=== PATIENT | female | born 1955 | race Two or more races ===

== ENCOUNTER 2021-07-31 09:30 | Outpatient (CLI) | payer MEDICARE, OTHER | END 2021-07-31 23:59 | disposition home or self-care (01) | LOC: LAB 09:30 | PROVIDERS: ATTEND Specialist | DX: Z01.812 Encounter for preprocedural laboratory examination (principal); Z20.822 Contact with and (suspected) exposure to COVID-19 | CPT/HCPCS: C9803; U0003 ==

== ENCOUNTER 2021-08-06 04:57 | Inpatient (IN) | payer MEDICARE, BC ==
[~2021-08-06] VITALS: Ht 165.1 cm; Wt 81.8 kg
--- NOTE | 2021-08-06 05:15 | NUR ---
PATIENT ARRIVED ON THE FLOOR FOR SURGERY TODAY. A/O X4. AMBULATORY. NO S/S OF DISTRESS NOTED. NO COMPLAIN OF PAIN. CALL LIGHT INSTRUCTED. URINE SAMPLE FOR UA COLLECTED AND SENT TO LAB. MRSA NASAL SWAB DONE BY KENNETH DIAZ AND SENT TO LAB. V/S TAKEN AND RECORDED, AFEBRILE. CONSENTS FOR RIGHT TOTAL ARTHROPLASTY, ANESTHESIA AND BLOOD TRANSFUSION SIGNED BY THE PATIENT AND ATTACHED TO THE CHART. PREOP CHECKLIST DONE AND ATTACHED TO THE CHART.
[2021-08-06 05:20] VITALS: BP 134/70
[2021-08-06] MEDS ORDERED: BUPIVACAINE 0.5 % PF 150 MG/30 ML VIAL ONE (06:34)
[2021-08-06] MEDS ORDERED: POLYMYXIN B SULFATE 500,000 UNITS ONE (06:34)
[2021-08-06] MEDS ORDERED: FENTANYL PF 250MCG/5ML AMPUL ONE (07:01)
[2021-08-06] MEDS ORDERED: HYDROMORPHONE INJ 2 MG/ML DISP.SYRIN ONE (07:02)
[2021-08-06] MEDS ORDERED: MIDAZOLAM HCL 2 MG/2ML VIAL ONE (07:02)
[2021-08-06] MEDS ORDERED: FAMOTIDINE/PF INJ 20 MG/2 ML VIAL IV ONE (07:02)
[2021-08-06] MEDS ORDERED: SUCCINYLCHOLINE CHLORIDE 20 MG/ML VIAL ONE (07:03)
[2021-08-06] MEDS ORDERED: TRANEXAMIC ACID 3,000 MG in SODIUM CHLORIDE IRRIG SOLUTION 70 ML IR ONE (08:00)
--- NOTE | 2021-08-06 08:13 | NUR ---
RN Opening Note Received report from previous shift that patient is under surgery, Dx is right knee orthoplasty. No new information at this time.
[2021-08-06] MEDS ORDERED: ONDANSETRON HCL/PF 4 MG/2 ML VIAL IVP PRN (08:30)
[2021-08-06] MEDS ORDERED: MAGNESIUM HYDROXIDE 30 ML UDC PO PRN (08:30)
[2021-08-06] MEDS ORDERED: MAG HYDROX/AL HYDROX/SIMETH 30 ML UDC PO PRN (08:30)
[2021-08-06] MEDS ORDERED: ACETAMINOPHEN 325 MG TABLET PO PRN (08:30)
[2021-08-06] MEDS ORDERED: LABETALOL 20 MG/4 ML VIAL IV PRN (08:30)
[2021-08-06] MEDS ORDERED: DULCOLAX 10 MG/SUPP.RECT RC PRN (10:30)
[2021-08-06] MEDS ORDERED: AMBIEN 5 MG TABLET PO PRN (10:30)
[2021-08-06] MEDS ORDERED: COLACE 250 MG CAPSULE PO PRN (10:30)
[2021-08-06] MEDS ORDERED: HYDROCODONE/APAP 5/325MG TABLET PO PRN ×2 (10:30)
[2021-08-06] MEDS ORDERED: TYLENOL 650 MG TABLET PO PRN (10:30)
[2021-08-06] MEDS ORDERED: SENOKOT 8.6 MG TABLET PO PRN (10:30)
[2021-08-06] MEDS ORDERED: ZOFRAN 4mg/2ML IV PRN (10:30)
[2021-08-06] MEDS ORDERED: IV LR 1000 ML 1,000 ML IV PRN (10:30)
[2021-08-06] MEDS: HYDROMORPHONE 1 MG/1 ML DISP.SYRIN IV PRN ×2 (12:32→16:40)
[2021-08-06 16:01] VITALS: BP 108/54
[2021-08-06] MEDS: ANCEF 1 GM/50 ML D5W IV SCH ×2 (16:34)
--- NOTE | 2021-08-06 18:53 | NUR ---
RN Closing Note Patient is resting in bed, no distress observed. Respiratory even and unlabored on room air. Skin is warm to touch, keep clean/dry. Kept elevated HOB for ensure airway and aspiration precaution, Also lower position of the bed for safety.Given pain medication and discussed with Dr. Vides. Call light within reach, all needs met. will endorse weight shifter.
--- NOTE | 2021-08-06 19:33 | NUR ---
RN OPENING NOTES RECEIVED PATIENT IN BED SLEEPING AT THIS MOMENT BUT EASILY AROUSABLE, ALERT, ORIENTED X4, VERBALLY RESPONSIVE. ON ROOM AIR AND PT TOLERATED WELL. NO SOB NOTED. IV ACCES LAC@2G INTACT AND PATENT. NO S/S OF INFILTRATIONS. NO C/O PAIN OR DISCOMFORT. NO ACUTE DISTRESS. AMBULATORY. ALL SAFETY PRECAUTIONS IN PLACE AT ALL TIMES. BED IN LOWEST POSITION AND LOCKED, HOB ELEVATED, SIDE RAILS UP X2, PLACE CALL LIGHT AND TABLE WITHIN REACH. WILL CONTINUE TO MONITOR
[2021-08-06 20:00] VITALS: BP 97/45
[2021-08-06] MEDS ORDERED: diphenhydrAMINE HCL 25 MG CAPSULE PO PRN (20:00)
[2021-08-06] MEDS ORDERED: LORAZEPAM 1 MG TABLET PO PRN ×2 (20:00)
[2021-08-06] MEDS ORDERED: BISACODYL SUPP (10 MG) 10 MG/SUPP.RECT SUPP.RECT RC PRN (20:00)
[2021-08-06] MEDS ORDERED: CLONIDINE HCL 0.1 MG TABLET PO PRN (20:00)
[2021-08-06] MEDS ORDERED: MENTHOL/CETYLPYRD (CEPACOL) 1 LOZ LOZENGE PO PRN (20:00)
[2021-08-06] MEDS: FAMOTIDINE (20 MG) 20 MG TABLET PO SCH (20:29)
[2021-08-06] MEDS: DOCUSATE SODIUM 100 MG CAPSULE PO SCH (20:29)
[2021-08-06] MEDS: SENNOSIDES 8.6 MG TABLET PO SCH (20:29)
[2021-08-07] MEDS: HYDROMORPHONE 1 MG/1 ML DISP.SYRIN IV PRN ×4 (00:07→15:31)
[2021-08-07] MEDS: ANCEF 1 GM/50 ML D5W IV SCH ×2 (00:23)
--- NOTE | 2021-08-07 00:32 | NUR ---
RN NOTES: PT C/O SEVERE PAIN 9/10 PAIN SCALE ON HER RT KNEE. DILAUDID GIVEN AND PT TOLERATED WELL. WILL CONTINUE TO MONITOR
--- NOTE | 2021-08-07 04:19 | NUR ---
RN NOTES: AT 0330, PT C/O SEVERE PAIN 9/10 PAIN SCALE ON HER RT KNEE. DILAUDID GIVEN PER PRN ORDER AND PT TOLERATED WELL. UNABLE TO CHART ON THE COMPUTER DUE TO COMPUTER SYSTEM WAS DOWN. WILL CONTINUE TO MONITOR
[2021-08-07 06:12] LABS: BASOPHILS % (AUTO) 0.2 % (0.0-2.0); EOSINOPHILS % (AUTO) 0.2 % (0.0-6.0); HEMATOCRIT 35 % (33-45); LYMPHOCYTES # (AUTO) 0.9 K/uL (0.8-4.8); LYMPHOCYTES % (AUTO) 7.2 % (20.0-44.0); MEAN CORPUSCULAR HGB CONC 34 g/dl (31.0-36.0); MEAN CORPUSCULAR VOLUME 90 fL (82-100); MONOCYTES # (AUTO) 0.8 K/uL (0.1-1.30); MONOCYTES % (AUTO) 6.6 % (2.0-12.0); NEUTROPHILS # (AUTO) 10.8 K/uL (1.8-8.9); NEUTROPHILS % (AUTO) 85.8 % (43.0-81.0); PLATELET COUNT (AUTO) 186 K/uL (150-450); RED BLOOD CELL COUNT(AUTO) 3.92 MIL/uL (4.0-5.2); WHITE BLOOD COUNT (AUTO) 12.6 K/uL (4.3-11.0)
--- NOTE | 2021-08-07 06:45 | NUR ---
RN CLOSING NOTES PATIENT IN BED, ASLEEP BUT EASILY AROUSABLE, ALERT, ORIENTED X4, VERBALLY RESPONSIVE. ON ROOM AIR, O2 94% AND PT TOLERATED WELL. NO SOB NOTED. BREATHING EVEN AND UNLABORED. IV ACCESS LT HAND INTACT AND PATENT. NO S/S OF INFILTRATIONS. NO C/O PAIN OR DISCOMFORT. NO ACUTE DISTRESS. BOO CATHETER INTACT WITH REDDISH COLOR URINE. ALL DUE MEDS GIVEN ORDERED. ALL SAFETY PRECAUTIONS IN PLACE AT ALL TIMES. BED IN LOWEST POSITION AND LOCKED, HOB ELEVATED, SIDE RAILS UP X2, PLACE CALL LIGHT AND TABLE WITHIN REACH. WILL ENDORSE TO MORNING SHIFT NURSE.
[2021-08-07 07:06] LABS: BILIRUBIN,TOTAL 0.5 mg/dL (0.2-1.0); CALCIUM, SERUM 8.3 mg/dL (8.5-10.1); CREATININE 0.9 mg/dL (0.6-1.3); MAGNESIUM 1.9 mg/dL (1.8-2.4); PHOSPHORUS 3.1 mg/dL (2.5-4.9); POTASSIUM 3.8 mmol/L (3.5-5.1); TOTAL PROTEIN, SERUM 5.9 g/dL (6.4-8.2)
--- NOTE | 2021-08-07 08:00 | NUR ---
RN Opening Note Patient received in bed AO x 4, able to responds all stimuli. Respiratory even and unlabored on room air. C/o right knee pain and given Dilaudid and Oxy IR, the patient stated pain scale 7-8 out of 10. Skin is warm to touch, keep clean/dry, intact IV site. Kept elevated HOB for ensure airway/aspiration precaution and remain lower position of the bed for safety. call light within reach, will continue to monitor.
[2021-08-07] MEDS: SENNOSIDES 8.6 MG TABLET PO SCH ×2 (08:38→17:44)
[2021-08-07] MEDS: DOCUSATE SODIUM 100 MG CAPSULE PO SCH ×2 (08:38→17:44)
[2021-08-07] MEDS: ASPIRIN 325 MG TABLET PO SCH (08:38)
[2021-08-07] MEDS: FAMOTIDINE (20 MG) 20 MG TABLET PO SCH ×2 (08:38→21:21)
[2021-08-07] MEDS: Fluoxetine 10 mg capsule PO SCH (08:39)
[2021-08-07] MEDS: oxyCODONE IR immediate release 5 MG PO PRN (08:45)
[2021-08-07] MEDS ORDERED: LORAZEPAM 1 MG TABLET PO ONE (13:54)
--- NOTE | 2021-08-07 18:00 | NUR ---
RN Closing Note Patient is resting in bed, no distress observed. Respiratory even and unlabored on room air. Skin is warm to touch, keep clean/dry. Kept elevated HOB for ensure airway and aspiration precaution, Also lower position of the bed for safety.Given pain medication and discussed with Dr. Vides. Call light within reach, all needs met. will endorse production supervisor off shift.
[2021-08-07 20:00] VITALS: BP 131/65
--- NOTE | 2021-08-07 20:16 | NUR ---
RN OPENING NOTES: RECEIVED PATIENT AWAKE IN BED, BED IN LOW POSITION, CALL LIGHTS WITHIN REACH, NO COMPLAIN OF PAIN AND DISCOMFORT AT THIS TIME PATIENT IS A/O X4 ABLE TO EXPRESS NEEDS WITH RIGHT KNEE ARTHROPLASTY DONE 2 DAYS AGO, WITH BANDAGE NO BLEEDING WAS OBSERVED, WITH LEFT HAND IV #20 SL, ON BOO CATHETER WITH 50CC URINE OUTPUT, PATIENT KEPT CLEAN AND DRY ALL NEEDS MET WILL CONTINUE TO MONITOR.
[2021-08-08] MEDS: HYDROMORPHONE 1 MG/1 ML DISP.SYRIN IV PRN (04:40)
--- NOTE | 2021-08-08 06:34 | NUR ---
MS RN CLOSING NOTES: PATIENT AWKAE IN BED, BED IN LOW POSITION CALL LIGHTS WITHIN REACH, ON PAIN MANAGEMENT, NO COMPLAIN OF PAIN AND DISCOMFORT AT THIS TIME, WITH IV LINE AT LEFT HAND SALINE LOCK, PATIENT HAS BANDAGE ON LEFT LEG S/P L KNEE ARTHROPLASTY, NO BLEEDING WAS NOTED, PATIENT KEPT CLEAN AND DRY ALL NEEDS MET, ENDORSE TO INCOMING SHIT.
--- NOTE | 2021-08-08 07:30 | NUR ---
MS RN OPENING NOTES RECEIVED PATIENT ON BED AWAKE AND A/O X4. ON ROOM AIR TOLERATING WELL. NO SOB NOTED. NOT IN DISTRESS. WITH NO COMPLAINTS OF PAIN OR DISCOMFORT AT THIS TIME. WITH IV ACCESS AT LEFT HAND G20 WITH SALINE LOCKED, PATENT AND INTACT. SAFETY MEASURES IN PLACED. CALL LIGHT WITHIN REACH. BED ON LOWEST LOCKED POSITION, SIDE RAILS UP X2. WILL CONTINUE TO MONITOR.
[2021-08-08 08:00] VITALS: BP 129/72
[2021-08-08 08:22] VITALS: BP 129/72
[2021-08-08] MEDS: SENNOSIDES 8.6 MG TABLET PO SCH (08:34)
[2021-08-08] MEDS: DOCUSATE SODIUM 100 MG CAPSULE PO SCH (08:35)
[2021-08-08] MEDS: ASPIRIN 325 MG TABLET PO SCH (08:35)
[2021-08-08] MEDS: Fluoxetine 10 mg capsule PO SCH (08:35)
[2021-08-08] MEDS: FAMOTIDINE (20 MG) 20 MG TABLET PO SCH (08:35)
[2021-08-08] MEDS: oxyCODONE IR immediate release 5 MG PO PRN ×2 (09:02→13:09)
[2021-08-08] MEDS ORDERED: ASPI-992 PO (09:27)
[2021-08-08] MEDS ORDERED: OXYC-128 PO (09:27)
--- NOTE | 2021-08-08 11:38 | NUR ---
RN NOTES REMOVED PT'S BOO CATHETER WITH AN OUTPUT OF 650ML CLEAR YELLOW URINE. WILL MONITOR PATIENT.
--- NOTE | 2021-08-08 12:40 | NUR ---
RN [facility] GAVE REPORT TO NURSE DEVONTE AT [phone].
--- NOTE | 2021-08-08 13:17 | NUR ---
MS COAT TAILOR NOTES PATIENT WAS SEEN BY DR. TEIXEIRA AND ORDERED PATIENT TO BE DISCHARGED TO SNF. DISCHARGE INSTRUCTION AND EDUCATION PROVIDED TO PATIENT AND EXPLAINED MEDICATIONS AND PRESCRIPTIONS. PATIENT VERBALIZED UNDERSTANDING. DISCHARGE FORM AND BELONGINGS LIST FORM SIGNED BY PATIENT. ALL BELONGINGS ACCOUNTED FOR. NAME WRIST BAND AND IV LINE REMOVED. PATIENT WAS PICKED UP BY AMBULANCE PERSONNEL GOING TO [facility] IN STABLE CONDITION. MD AND CHARGE NURSE ARE AWARE OF THE DISCHARGE.
== END 2021-08-08 13:30 | DRG 470 ==
LOC: DS 04:57 → MED 04:59
PROVIDERS: ADMIT Internal Medicine; ATTEND Internal Medicine
PROC: 0SRC0J9 Replacement of Right Knee Joint with Synthetic Substitute, Cemented, Open Approach (ICD-10-PCS; principal; 2021-08-06)
DX: M17.11 Unilateral primary osteoarthritis, right knee (principal); F41.9 Anxiety disorder, unspecified; Z20.822 Contact with and (suspected) exposure to COVID-19; E66.9 Obesity, unspecified; Z68.30 Body mass index [BMI] 30.0-30.9, adult; F32.A Depression, unspecified; Z96.652 Presence of left artificial knee joint; Z87.891 Personal history of nicotine dependence; Z87.81 Personal history of (healed) traumatic fracture
CPT/HCPCS: 36415; 80053-TC; 83735-TC; 84100-TC; 85025-TC; 86850-TC; 87081-TC; 88305-TC; 88311-TC; 97116-TC; 97530-TC; 97760-TC; A4217; C1713; C1776; G0378; J0330; J0690; J1170; J2250; J2405; J2704; J2765; J3010; J3490; J7030; J7060; J7120; L1830